=== PATIENT | female | born 2000 | race Caucasian/White ===

== ENCOUNTER 2022-01-05 12:49 | Observation (INO) | payer OTHER ==
[2022-01-05] MEDS ORDERED: Morphine 4 MG/ML VIAL ONE (12:57)
[2022-01-05 13:04] LABS: #Eosinphils 0.1 thou/uL (0.0-0.7); #Lymphocytes 3.3 thou/uL (1.20-3.40); #Monocytes 0.6 thou/uL (0.11-0.59); #Neutrophils 5.5 thou/uL (1.40-6.50); %Basophils 0.3 % (0.0-1.0); %Eosinophils 0.9 % (0.0-10.0); %Lymphocytes 34.5 % (21.0-51.0); %Neutrophils 58.3 % (42.0-75.0); Hemoglobin 13.7 g/dL (12.0-16.0); Mean Corpuscular HGB CONC 32.7 g/dL (32.0-36.0); Mean Corpuscular Hemoglobin 30.6 pg (27.0-31.0); Mean Corpuscular Volume 93.7 fL (78.0-98.0); Mean Platelet Volume 8.1 fL (7.4-10.4); Platelet Count 236 thou/uL (130-400); RBC Distribution Width 11.9 % (11.5-14.5); Red Blood Cell (RBC) Count 4.47 mill/uL (4.20-5.40); White Blood Cell (WBC) Count 9.5 thou/uL (4.8-10.8)
[2022-01-05 13:08] LABS: BHCG - Serum Negative (NEGATIVE); Pregs Control Background? CLEAR/WHITE (CLR/WHITE); Pregs Control Bar Appear? YES (CONTROL BAR)
[2022-01-05 13:19] LABS: ALT (SGPT) 14 U/L (8-55); AST (SGOT) 25 U/L (5-34); Albumin 4.7 g/dL (3.5-5.0); Alkaline Phosphatase 61 U/L (40-110); Anion Gap 19 mmol/L (10-20); BUN (Urea Nitrogen) 11 mg/dL (7.0-18.7); Calc. Creatinine Clearance 0 mL/min (70-130); Carbon Dioxide 19 mmol/L (22-29); Chloride 102 mmol/L (98-107); Estimated GFR 89; Globulin 2.7 g/dL (2.4-3.5); Glucose 139 mg/dL (70-105); Potassium 3.2 mmol/L (3.5-5.1); Protein, Total 7.4 g/dL (6.0-8.3); Sodium 137 mmol/L (136-145)
[2022-01-05] MEDS ORDERED: Ondansetron PF 4 MG/2 ML Vial ONE ×2 (14:14→14:17)
[2022-01-05] MEDS ORDERED: Dextrose 5% in Water 1,000 ML IV PRN (14:24)
[2022-01-05] MEDS ORDERED: Ondansetron PF 4 MG/2 ML Vial IVP PRN (14:24)
[2022-01-05] MEDS ORDERED: Dextrose 50% Abboject 50 ML SYRINGE SLOW IVP PRN (14:24)
[2022-01-05] MEDS ORDERED: Scopolamine 1.5 mg/72 hour Patch TD SCH (14:30)
[2022-01-05] MEDS ORDERED: Ibuprofen 100 MG/5 ML UDCUP PO SCH (15:00)
[2022-01-05] MEDS ORDERED: Acetaminophen 325 MG/10.15 ML UDCUP PO SCH ×2 (15:00)
[2022-01-05] MEDS ORDERED: Iopamidol-370 76% 500 ML 1 ML ONE (15:33)
[2022-01-05 16:12] VITALS: BMI 18.6
[2022-01-05 16:48] LABS: Lactic Acid 1.9 mmol/L (0.5-2.2)
[2022-01-05] MEDS: Ibuprofen 100 MG/5 ML UDCUP PO SCH (20:54)
[2022-01-05] MEDS ORDERED: Famotidine 20 MG TAB PO SCH (21:00)
[2022-01-06] MEDS: Acetaminophen 325 MG/10.15 ML UDCUP PO SCH ×3 (00:11→11:28)
[2022-01-06] MEDS: Ibuprofen 100 MG/5 ML UDCUP PO SCH ×2 (06:49→13:33)
[2022-01-06 13:27] VITALS: BP 107/69; TEMP 98.2
== END 2022-01-06 14:53 | disposition home or self-care (01) ==
LOC: ERS 12:49 → SURG A 15:51
PROVIDERS: ADMIT Surgery; ATTEND Surgery
DX: S06.0X9A Concussion with loss of consciousness of unspecified duration, initial encounter (principal); S00.93XA Contusion of unspecified part of head, initial encounter; S22.019A Unspecified fracture of first thoracic vertebra, initial encounter for closed fracture; S22.029A Unspecified fracture of second thoracic vertebra, initial encounter for closed fracture; S43.101A Unspecified dislocation of right acromioclavicular joint, initial encounter; S40.011A Contusion of right shoulder, initial encounter; S70.01XA Contusion of right hip, initial encounter; W55.12XA Struck by horse, initial encounter
CPT/HCPCS: 36415; 70450; 70486; 71045; 71260; 72125; 74177; 80053; 83605; 84703; 85025; 93005; 96374; 96375; G0378; G0390; J2270; J2405; Q9967